=== PATIENT | male | born 1995 | race Caucasian/White ===

== ENCOUNTER 2018-12-06 13:48 | Emergency (ER) | payer OTHER ==
[~2018-12-06] VITALS: Ht 182.9 cm; Wt 105.2 kg
[2018-12-06] MEDS ORDERED: OFLO5DRO7 LEFT EAR (13:59)
[2018-12-06] MEDS ORDERED: HYDR-4226 PO (13:59)
--- NOTE | 2018-12-06 13:59 | ED EENT ---
History of Present Illness General Stated Complaint: L EAR PAIN Source: patient Exam Limitations: no limitations History of Present Illness Date Seen by Provider: Dec 06, 2018 Time Seen by Provider: 13:56 Initial Comments ER with left ear pain 2 weeks. Just finished a course of Augmentin without improvement. Timing/Duration: abrupt Severity: moderate Location: ear (L) Associated Symptoms: denies symptoms Allergies and Home Medications Patient Home Medication List Home Medication List Reviewed: Yes Review of Systems Review of Systems Constitutional: see HPI Eyes: No Symptoms Reported Ears: See HPI, Pain Nose: no symptoms reported Mouth: no symptoms reported Throat: no symptoms reported Respiratory: no symptoms reported Cardiovascular: no symptoms reported Past Kdckyyc-Vazsvb-Coarxp Hx Patient Social History Recent Foreign Travel: No Contact w/Someone Who Travel: No Physical Exam Height, Weight, BMI Height: '" Weight: lbs. oz. kg; BMI Method: General Appearance: WD/WN, no apparent distress Eyes: bilateral eye normal inspection, bilateral eye PERRL, bilateral eye EOMI Ears: left ear other (left outer ear canal is erythematous and erythematous); bilateral ear auricle normal, bilateral ear TM normal Mouth/Throat: normal mouth inspection, pharynx normal, dental tenderness Neck: non-tender, full range of motion Departure Impression Primary Impression: Otitis externa Qualified Codes: H60.312 - Diffuse otitis externa, left ear Disposition: 01 HOME, SELF-CARE Condition: Stable Departure-Patient Inst. Decision time for Depature: 13:58 Patient Instructions: Outer Ear Infection Scripts Hydrocodone/Acetaminophen ([place] 5-325 Tablet) 1 Each Tablet 1 TAB PO Q4-6HR for Pain MDD 10 TABS for 7 Days, #10 TAB Prov: DMITRI WANG APRN 12/06/18 Ofloxacin (Floxin (Non-Formulary)) 5 Ml Drops 10 DROPS LEFT EAR BID for 5 Days, #1 DROPS 3 Refills Prov: DMITRI WANG APRN 12/06/18 DMITRI WANG APRN Dec 06, 2018 13:59
[2018-12-06 14:00] VITALS: BP 150/93
[2018-12-07] MEDS ORDERED: LEVO500T80 PO ×2 (21:43→21:52)
== END 2018-12-06 14:02 | disposition home or self-care (01) ==
LOC: ER 13:49
DX: H60.92 Unspecified otitis externa, left ear (principal)
CPT/HCPCS: 99282

== ENCOUNTER 2018-12-07 20:54 | Emergency (ER) | payer OTHER ==
[~2018-12-07] VITALS: Ht 182.9 cm; Wt 105.2 kg
[~2018-12-07 20:54] MED LIST: HYDR-4226 PO; OFLO5DRO7 LEFT EAR
[2018-12-07] MEDS ORDERED: LIDOCAINE 4% INJ (XYLOCAINE) 5ML AMP TOP ONE (21:30)
[2018-12-07] MEDS ORDERED: LEVO500T80 PO ×2 (21:43→21:52)
--- NOTE | 2018-12-07 21:44 | ED EENT ---
History of Present Illness General Chief Complaint: Ear Problems Stated Complaint: LEFT EAR PAIN Nursing Triage Note: Patient ambulatory to ER FT3 with complaint of left ear pain x 2 weeks. Patient states he was seen at Urgent care several days ago and given Amoxicillin. He states that did not help the pain and was seen in the ER here last night. he was given antibiotic ear drops and hydrocodone for the ear but states the pain has not improved. He has not taken any tylenol or motrin today. Source: patient Exam Limitations: no limitations History of Present Illness Date Seen by Provider: Dec 07, 2018 Time Seen by Provider: 21:40 Initial Comments Patient notices worsening left earache, he finished Augmentin 2 days ago, was seen here yesterday, diagnosed with otitis externa and changed to Floxin otic a nd hydrocodone. Presents today with worsening pain and drainage from the left ear. Timing/Duration: abrupt Severity: moderate Location: ear (L) Associated Symptoms: denies symptoms Allergies and Home Medications Allergies Coded Allergies: No Known Drug Allergies (Unverified , 12/06/18) Home Medications Hydrocodone/Acetaminophen 1 Each Tablet, 1 TAB PO Q4-6HR Prescribed by: DMITRI WANG on 12/06/18 1351 Ofloxacin 5 Ml Drops, 10 DROPS LEFT EAR BID Prescribed by: DMITRI WANG on 12/06/18 1359 Patient Home Medication List Home Medication List Reviewed: Yes Review of Systems Review of Systems Constitutional: see HPI Eyes: No Symptoms Reported Ears: See HPI, Pain Nose: no symptoms reported Mouth: no symptoms reported Throat: no symptoms reported Respiratory: no symptoms reported Cardiovascular: no symptoms reported Musculoskeletal: no symptoms reported Past Uhutyml-Dsodcu-Shlsrg Hx Patient Social History Alcohol Use: Denies Use Recreational Drug Use: No Smoking Status: Never a Smoker 2nd Hand Smoke Exposure: No Recent Foreign Travel: No Contact w/Someone Who Travel: No Recent Infectious Disease Expo: No Recent Hopitalizations: No Physical Abuse: No Sexual Abuse: No Mistreated: No Fear: No Immunizations Up To Date PED Vaccines UTD: Yes Seasonal Allergies Seasonal Allergies: No Past Medical History Surgeries: Yes Orthopedic Respiratory: No Cardiac: No Neurological: No Genitourinary: No Gastrointestinal: No Musculoskeletal: No Endocrine: No HEENT: No Cancer: No Psychosocial: No Blood Disorders: No Physical Exam Vital Signs Vital Signs - First Documented 12/07/18 21:10 Temp 99.0 Pulse 82 Resp 16 B/P (MAP) 139/91 (107) Pulse Ox 99 O2 Delivery Room Air Height, Weight, BMI Height: 6'0" Weight: 232lbs. 0oz. [id number]; BMI Method:Stated General Appearance: WD/WN, no apparent distress Eyes: bilateral eye normal inspection, bilateral eye PERRL, bilateral eye EOMI Ears: left ear other (persistent swelling of the left external ear canal with discharge from it, tenderness with any movement of the ear, mastoid process is normal in appearance without erythema or tenderness.); bilateral ear auricle normal, bilateral ear TM normal Neck: non-tender, full range of motion Respiratory: normal breath sounds, no respiratory distress, no accessory muscle use Gastrointestinal: normal bowel sounds, non tender Neurologic/Psychiatric: alert, normal mood/affect, oriented x 3 Skin: normal color, warm/dry Progress/Results/Core Measures Results/Orders My Orders Orders - DMITRI WANG APRN Lidocaine 4% 5 Ml (Xylocaine 4%) (12/07/18 21:30) Levofloxacin Tablet (Levaquin Tablet) (12/07/18 21:45) Vital Signs/I&O 12/07/18 21:10 Temp 99.0 Pulse 82 Resp 16 B/P (MAP) 139/91 (107) Pulse Ox 99 O2 Delivery Room Air Blood Pressure Mean: 107 Departure Impression Primary Impression: Otitis externa Qualified Codes: H60.502 - Unspecified acute noninfective otitis externa, left ear Disposition: 01 HOME, SELF-CARE Condition: Stable Departure-Patient Inst. Decision time for Depature: 21:42 Referrals: NO,LOCAL PHYSICIAN (PCP/Family) Primary Care Physician Patient Instructions: Outer Ear Infection (DC) Add. Discharge Instructions: 1. Ibuprofen 800 mg every 8 hours in addition to the hydrocodone you were given yesterday. Once that runs out, add Tylenol to the ibuprofen. Once a day remove the ear wick which was the expandable foam placed in the emergency room, place a new piece and dry gently, then saturated with several drops of the antibiotic. All discharge instructions reviewed with patient and/or family. Voiced understanding. Scripts Levofloxacin (Levofloxacin) 500 Mg Tablet 500 MG PO DAILY, #5 TAB 0 Refills Prov: DMITRI WANG APRN 12/07/18 Work/School Note: Work Release Form Date Seen in the Emergency Department: Dec 07, 2018 Return to Work: Dec 09, 2018 DMITRI WANG APRN Dec 07, 2018 21:43
[2018-12-07] MEDS ORDERED: IBUPROFEN 800 MG (MOTRIN) TAB PO ONE (21:45)
[2018-12-07] MEDS ORDERED: LEVOFLOXACIN 500 MG TAB (LEVAQUIN) PO ONE (21:45)
[2018-12-07] MEDS ORDERED: LEVOFLOXACIN 750 MG TAB (LEVAQUIN) PO ONE (21:45)
[2018-12-07 21:53] VITALS: BP 139/91
== END 2018-12-07 21:55 | disposition home or self-care (01) ==
LOC: EDUNIT# 20:54 → ER 20:56
DX: H60.92 Unspecified otitis externa, left ear (principal)
CPT/HCPCS: 99283